=== PATIENT | female | born 2000 | race African-American/Black ===

== ENCOUNTER 2024-10-04 11:49 | Emergency (ER) | payer MEDICAID ==
[~2024-10-04] VITALS: Ht 162.6 cm; Wt 56.8 kg
[2024-10-04 12:10] VITALS: O2SAT 97
[2024-10-04 12:20] VITALS: BP 120/70; PULSE 87; RESP 18; TEMP 36.6; O2SAT 95
[2024-10-04 12:57] LABS: BASOPHILS % 0.9 % (0.0-2.0); EOSINOPHILS % 11.4 % (0.0-5.0); HEMATOCRIT. 39.5 % (36.0-48.0); HEMOGLOBIN. 13.1 g/dL (12.0-16.0); MEAN CORPUSCULAR HEMOGLOBIN 33.1 pg (28.0-32.0); MEAN CORPUSCULAR HGB CONC 33.1 g/dL (31.0-37.0); MEAN CORPUSCULAR VOLUME 99.8 fL (81.0-99.0); MEAN PLATELET VOLUME 7.5 fl (7.4-10.4); NEUTROPHILS % 47.7 % (40.0-76.0); PLATELET 391 x1000/uL (130-400); RED BLOOD CELL COUNT 3.96 mill/uL (4.2-5.4); RED CELL DISTRIBUTION WIDTH 11.9 % (11.6-14.6)
[2024-10-04 13:05] LABS: CHLORIDE 107 mEq/L (98-107); POTASSIUM 4.3 mEq/L (3.5-5.1); SODIUM 138 mEq/L (136-145)
[2024-10-04 13:06] LABS: CARBON DIOXIDE 21 mEq/L (21-32)
[2024-10-04 13:07] LABS: CALCIUM 8.9 mg/dL (8.7-10.4)
[2024-10-04 13:08] LABS: HCG SCREEN NEGATIVE
[2024-10-04 13:11] LABS: CREATININE 0.7 mg/dL (0.6-1.0); GLUCOSE 88 mg/dL (70-105)
[2024-10-04 13:12] LABS: UREA NITROGEN BLOOD 11 mg/dL (9-23)
[2024-10-04 13:13] LABS: ALANINE AMINOTRANSFERASE 9 IU/L (10-49); ALBUMIN 4.2 g/dL (3.2-4.8); ASPARTATE AMINOTRANSFERASE 23 IU/L (<34)
[2024-10-04 13:14] LABS: BILIRUBIN DIRECT 0.2 mg/dL (<=3.0); BILIRUBIN TOTAL 0.9 mg/dL (0.1-1.0); PROTEIN TOTAL 7.7 g/dL (6.0-8.3)
[2024-10-04 13:29] LABS: CLARITY URINE CLEAR (CLEAR); COLOR URINE YELLOW (YELLOW); GLUCOSE URINE NEGATIVE (NEGATIVE); KETONES URINE NEGATIVE (NEGATIVE); LEUKOCYTE ESTERASE URINE NEGATIVE (NEGATIVE); NITRITE URINE NEGATIVE (NEGATIVE); OCCULT BLOOD URINE NEGATIVE (NEGATIVE); PH URINE 5.5 (4.5-8.0); PROTEIN URINE TRACE (NEGATIVE); SPECIFIC GRAVITY URINE 1.027 (1.005-1.030)
[2024-10-04 13:57] LABS: BACTERIA URINE 1+; RBC URINE 0-2 /hpf (0-2); SQUAMOUS EPITHELIAL CELL URINE 2+ /lpf (RARE/1+); YEAST URINE NONE SEEN
[2024-10-04] MEDS ORDERED: ACET-2708 MT (14:35)
[2024-10-04] MEDS ORDERED: NITR-87 MT (14:37)
== END 2024-10-04 14:46 | disposition home or self-care (01) ==
LOC: ER 11:58
DX: R10.2 Pelvic and perineal pain (principal); Z98.890 Other specified postprocedural states; Z88.6 Allergy status to analgesic agent; Z79.899 Other long term (current) drug therapy
CPT/HCPCS: 36415; 74176; 76830; 76856; 80053; 80076; 81003; 81025; 84703; 85025; 99284; A4606